=== PATIENT | male | born 1940 | race Caucasian/White ===

== ENCOUNTER 2016-10-11 08:52 | Day surgery (SDC) | payer MEDICARE ==
[2016-10-11] MEDS ORDERED: COREG 25MG25 MG/TAB PO (10:12)
[2016-10-11] MEDS ORDERED: ELIQUIS 5MG PO (10:14)
[2016-10-11] MEDS ORDERED: COZAAR100 MG PO (10:14)
[2016-10-11] MEDS ORDERED: HUMALOG100 U/ML SQ (10:15)
[2016-10-11] MEDS ORDERED: LANTUS100 U/ML SQ (10:16)
[2016-10-11] MEDS ORDERED: LASIX 40MG TABL40 MG PO (10:17)
[2016-10-11] MEDS ORDERED: KLOR-CON 1010 MEQ PO (10:18)
[2016-10-11] MEDS ORDERED: BACTROBAN NASA0.9 GM NS (10:19)
[2016-10-11] MEDS ORDERED: ROCEPHIN VIA1 G/VIAL IV (10:19)
[2016-10-11] MEDS ORDERED: SYNTHROID 0.0.025 MG PO (10:20)
[2016-10-11 11:57] VITALS: BP 17/96; PULSE 95
== END 2016-10-11 13:30 | disposition home or self-care (01) ==
LOC: COL.CAR 08:52
DX: R06.9 Unspecified abnormalities of breathing (principal); E11.9 Type 2 diabetes mellitus without complications; I73.9 Peripheral vascular disease, unspecified; Z79.01 Long term (current) use of anticoagulants; Z96.643 Presence of artificial hip joint, bilateral

== ENCOUNTER 2016-10-15 05:56 | Day surgery (SDC) | payer MEDICARE ==
[2016-10-15] VITALS (13 sets, daily range): BP systolic 120–182; BP diastolic 63–95; PULSE 60–67; TEMP 97.5
[~2016-10-15] VITALS: Ht 185.4 cm; Wt 97.0 kg
[~2016-10-15 05:56] MED LIST: BACTROBAN NASA0.9 GM NS; COREG 25MG25 MG/TAB PO; COZAAR100 MG PO; ELIQUIS 5MG PO; HUMALOG100 U/ML SQ; KLOR-CON 1010 MEQ PO; LANTUS100 U/ML SQ; LASIX 40MG TABL40 MG PO; ROCEPHIN VIA1 G/VIAL IV; SYNTHROID 0.0.025 MG PO
[2016-10-15 07:10] LABS: CREATININE, serum 1.16 mg/dL (0.66-1.25)
[2016-10-15 07:18] LABS: HEMOGLOBIN 13.5 g/dl (13.5-18.0); MEAN CELL VOLUME 87 fl (80.0-100.0); MEAN CORPUSCULAR HEMOGLOBIN 27 pg (27.0-31.0); MEAN CORPUSCULAR HGB CONC 31 g/dl (33.0-37.0); MEAN PLATELET VOLUME 9.8 fl (7.4-10.4); PLATELET COUNT 160 K/mm3 (130-400); RED BLOOD COUNT 5.07 M/mm3 (4.20-5.60); REDCELL DISTRIBUTION WIDTH-CV 17.2 % (11.5-14.5); WHITE BLOOD COUNT 7.9 K/mm3 (4.8-10.8)
[2016-10-15 07:20] LABS: INR 1.5 (0.8-3.0)
[2016-10-15] MEDS ORDERED: LEVAQUIN 5500 MG/TA1 PO (07:24)
[2016-10-15] MEDS ORDERED: PRAVACHOL 20MG20 MG PO (07:27)
[2016-10-15] MEDS ORDERED: CEFTIN500 MG PO (07:28)
[2016-10-15] MEDS ORDERED: PLAVIX 75MG TAB75 MG PO (15:01)
[2016-10-15] MEDS ORDERED: ASPIRIN E.C. 8181 MG PO (15:02)
== END 2016-10-15 18:15 | disposition home or self-care (01) ==
LOC: COL.CAR 05:56
PROVIDERS: Radiology Diagnostic Radiology
DX: T81.89XA Other complications of procedures, not elsewhere classified, initial encounter (principal); I73.9 Peripheral vascular disease, unspecified; I48.91 Unspecified atrial fibrillation; Z79.01 Long term (current) use of anticoagulants; E11.9 Type 2 diabetes mellitus without complications; Z79.4 Long term (current) use of insulin; I10 Essential (primary) hypertension; E78.00 Pure hypercholesterolemia, unspecified; E03.9 Hypothyroidism, unspecified; Z89.511 Acquired absence of right leg below knee; R00.1 Bradycardia, unspecified; Z95.0 Presence of cardiac pacemaker; Z80.9 Family history of malignant neoplasm, unspecified
CPT/HCPCS: C1725; C1769; C1876; C1887; C1894; J0360; J1644; J2250; J2405; J3010; J7030; J7120; Q9967